=== PATIENT | female | born 1970 | race Caucasian/White ===

== ENCOUNTER 2018-08-24 09:51 | Emergency (ER) | payer OTHER, MEDICAID, SELFPAY ==
[2018-08-24 09:55] VITALS: BP 159/107; PULSE 108; RESP 30; TEMP 36.7; O2SAT 100
--- NOTE | 2018-08-24 10:11 | ED_ITS ---
HPI - Abdominal Pain General Chief Complaint: Abdominal Pain Stated Complaint: severe stomach pains x1 day Time Seen by Provider: 08/24/18 10:03 Source: patient Mode of arrival: ambulatory Limitations: no limitations History of Present Illness HPI narrative: Patient is a 48-year-old female who presents with severe a bdominal pain which started yesterday. He seems to be in severe pain pain is all over. She has had some nausea vomiting. She denies any fever. She denies chest pain. No shortness of breath she is quite anxious. Related Data Allergies Allergy/AdvReac Type Severity Reaction Status Date / Time No Known Drug Allergies Allergy Verified 08/24/18 10:04 Review of Systems Review of Systems GENERAL: Denies chills, fatigue, malaise, fever, sweats, travel HEENT: Denies sinus pain, ear pain, sore throat, difficulty swallowing, neck pain RESPIRATORY: Denies dyspnea, cough, wheezing, hemoptysis, sputum. CARDIOVASCULAR: Denies chest pain, palpitations, orthopnea, edema GASTROINTESTINAL: See HPI : Denies dysuria, frequency, incontinence, hematuria, urinary retention, flank pain. MUSCULOSKELETAL: Denies weakness, joint pain, or bony pain SKIN: No rash, no erythema, no pruritus NEUROLOGIC: Denies weakness, dizziness, headache, numbness, change in speech, confusion PSYCHIATRIC: No concerning psychosocial issues. 12 point review of systems is negative except for those stated above and HPI [facility] Medical History IV drug abuse (Acute) Methamphetamine abuse (Acute) Social History Smoking Status: Current every day smoker Social History Smoking Status: Current every day smoker Exam Initial Vital Signs Initial Vital Signs: Vital Signs Temperature 98.1 F 08/24/18 09:55 Pulse Rate 108 H 08/24/18 09:55 Respiratory Rate 30 H 08/24/18 09:55 Blood Pressure 159/107 H 08/24/18 09:55 Pulse Oximetry 100 08/24/18 09:55 GENERAL: Very anxious screaming female appears in pain HEENT: Head atraumatic,EOMI, pupils reactive, face symmetric, CARDIOVASCULAR: Regular rate and rhythm without murmurs, rubs or gallops. RESPIRATORY: Breath sounds equal bilaterally, no wheezes rales or rhonchi. ABDOMEN: Soft, diffusely tender no distension no guarding EXTREMITIES: Normal range of motion, no clubbing or edema. Neurovascularly intact NEUROLOGICAL: Alert and oriented x4.Normal gait and speech. Cranial nerves II through XII grossly intact. SKIN: Warm, dry, no laceration, no petechiae, no rashes or lesions. Course Orders Ordered: ED Orders 08/24/18 11:01 Complete Blood Count AUTO DIFF Stat Comprehensive Metabolic Panel Stat Ethanol (ETOH) Stat Lipase Stat 08/24/18 11:58 Urine Drug Screen, Rapid Stat Discontinued Medications Hydromorphone HCl (Dilaudid) 0.5 mg IV NOW ONE Stop: 08/24/18 10:22 Last Admin: 08/24/18 10:55 Dose: Not Given Hydromorphone HCl (Dilaudid) 1 mg IV NOW ONE Stop: 08/24/18 10:55 Last Admin: 08/24/18 10:40 Dose: 1 mg Sodium Chloride (Normal Saline 0.9%) 1,000 mls @ 150 mls/hr IV CONT RONNIE Last Infusion: 08/24/18 12:14 Dose: 0 mls/hr Admin: 08/24/18 10:57 Dose: 150 mls/hr Ondansetron HCl (Zofran) 4 mg IV NOW ONE Stop: 08/24/18 10:22 Last Admin: 08/24/18 10:55 Dose: 4 mg Vital Signs - 8 hr 08/24/18 09:55 08/24/18 11:02 08/24/18 12:16 Temperature 98.1 F 97.4 F L Pulse Rate 108 H 94 H 98 H Respiratory Rate 30 H 16 Blood Pressure 159/107 H 162/98 H Blood Pressure [Left Arm] 155/93 H Pulse Oximetry 100 98 18 L MDM - Abdominal Pain Lab Data Attestation: I reviewed the patient's lab results. Result diagrams: 08/24/18 11:01 08/24/18 11:01 Lab Results 08/24/18 08/24/18 08/24/18 Range/Units 11:01 11:01 11:01 WBC 11.2 H (4.5-11.0) X10^3/uL RBC 5.89 H (4.0-5.2) X10^6/uL Hgb 17.7 H (12.0-16.0) g/dL Hct 52.5 H (36-46) % MCV 89.1 (80-100) fL MCH 30.1 (26-34) PG MCHC 33.8 (30-36) % RDW 14.7 (11.6-14.8) % Plt Count 251 (150-400) X10^3/uL Neut % (Auto) 72.2 (50-75) % Lymph % (Auto) 18.5 L (25-40) % Alcorn % (Auto) 8.1 (3-14) % Eos % (Auto) 0.6 L (2-4) % Baso % (Auto) 0.6 (0-2) % Neut # (Auto) 8100 H (5941-2575) /uL Lymph # (Auto) 2100 (4021-4891) /uL Alcorn # (Auto) 900 (0-900) /uL Eos # (Auto) 100 (0-450) /uL Baso # (Auto) 100 (0-100) /uL Sodium 145 (137-145) mmol/L Potassium 3.8 (3.4-5.1) mmol/L Chloride 113 H (98-107) mmol/L Carbon Dioxide 22 (22-32) mmol/L BUN 13 (7-17) mg/dL Creatinine 0.50 L (0.52-1.04) mg/dL Estimated GFR > 60.0 (>60) mL/min BUN/Creatinine Ratio 26.0 H (6-22) Glucose 111 H (70-100) mg/dL Calcium 9.0 (8.4-10.2) mg/dL Total Bilirubin 0.9 (0.2-1.3) mg/dL AST 304 H (14-36) IU/L ALT 476 H (9-52) IU/L Alkaline Phosphatase 185 H (38-126) U/L Total Protein 8.5 H (6.3-8.2) g/dL Albumin 4.1 (3.5-5.0) g/dL Globulin 4.4 H (1.7-4.1) g/dL Albumin/Globulin Ratio 0.9 L (1.0-2.8) Lipase 111 (23-300) U/L Urine Opiates Screen (Negative) Ur Oxycodone Screen (Negative) Urine Methadone Screen (Negative) Ur Barbiturates Screen (Negative) U Tricyclic Antidepress (Negative) Ur Phencyclidine Scrn (Negative) Ur Amphetamines Screen (Negative) U Methamphetamines Scrn (Negative) Ur MDMA Scrn (Ecstasy) (Negative) U Benzodiazepines Scrn (Negative) Urine Cocaine Screen (Negative) U Marijuana (THC) Screen (Negative) Ethyl Alcohol < 10 mg/dL 08/24/18 Range/Units 11:58 WBC (4.5-11.0) X10^3/uL RBC (4.0-5.2) X10^6/uL Hgb (12.0-16.0) g/dL Hct (36-46) % MCV (80-100) fL MCH (26-34) PG MCHC (30-36) % RDW (11.6-14.8) % Plt Count (150-400) X10^3/uL Neut % (Auto) (50-75) % Lymph % (Auto) (25-40) % Alcorn % (Auto) (3-14) % Eos % (Auto) (2-4) % Baso % (Auto) (0-2) % Neut # (Auto) (2745-4407) /uL Lymph # (Auto) (3173-8179) /uL Alcorn # (Auto) (0-900) /uL Eos # (Auto) (0-450) /uL Baso # (Auto) (0-100) /uL Sodium (137-145) mmol/L Potassium (3.4-5.1) mmol/L Chloride (98-107) mmol/L Carbon Dioxide (22-32) mmol/L BUN (7-17) mg/dL Creatinine (0.52-1.04) mg/dL Estimated GFR (>60) mL/min BUN/Creatinine Ratio (6-22) Glucose (70-100) mg/dL Calcium (8.4-10.2) mg/dL Total Bilirubin (0.2-1.3) mg/dL AST (14-36) IU/L ALT (9-52) IU/L Alkaline Phosphatase (38-126) U/L Total Protein (6.3-8.2) g/dL Albumin (3.5-5.0) g/dL Globulin (1.7-4.1) g/dL Albumin/Globulin Ratio (1.0-2.8) Lipase (23-300) U/L Urine Opiates Screen Positive H (Negative) Ur Oxycodone Screen Negative (Negative) Urine Methadone Screen Negative (Negative) Ur Barbiturates Screen Negative (Negative) U Tricyclic Antidepress Negative (Negative) Ur Phencyclidine Scrn Negative (Negative) Ur Amphetamines Screen Positive H (Negative) U Methamphetamines Scrn Positive H (Negative) Ur MDMA Scrn (Ecstasy) Positive H (Negative) U Benzodiazepines Scrn Negative (Negative) Urine Cocaine Screen Negative (Negative) U Marijuana (THC) Screen Positive H (Negative) Ethyl Alcohol mg/dL Point of care testing: Point of Care Testing Test Results Negative Urine Dip Bedside Urine Glucose Negative Bedside Urine Bilirubin + 1 Bedside Urine Ketone - Negative Urine Specific Lester 1.025 Bedside Urine Occult Blood +++ Bedside Urine pH 6.0 Bedside Urine Protein + 30 Bedside Urine Urobilinogen 1+ 2mg Bedside Urine Nitrite - Negative Bedside Urine Leukocytes - Negative Esterase MDM Narrative Medical decision making narrative: Patient was extremely hard stick because she kept screaming and moving. 12:05 p.m. the patient refuses to stay any longer she says her right is leaving. She has elevated liver enzymes her abdomen is reexamined at this time she has no right upper quadrant pain. No nausea or vomiting. She has not yet had her abdominal CT are abdominal ultrasound. However she would like to leave. Urine positive for methamphetamines, amphetamines, MDMA, marijuana and opiates. The patient is clinically sober, free from distracting injury, appears to have intact insight, judgment and reason. Does not meet criteria for involuntary hospitalization. Patient has the capacity to make decisions. Discharge Plan Departure Patient Disposition: Left Against Medical Advice Clinical Impression: Elevated liver enzymes Discharge Date/Time: 08/24/18 12:17 Interventions: ED Discharge Assessment Last Done: 08/24/18 12:16 Instructions: Cirrhosis, DI for Acute Liver Failure Activity Restrictions/Additional Instructions: *You have been diagnosed with elevated liver enzymes *What to do: He refused to have abdominal CT ultrasound and further testing. Her liver enzymes are elevated is strongly recommended that you have those rechecked. *Continue to take medications as directed Do not take Tylenol *Follow up with your primary care provider in 2-3 days *Return to ER if you should have worsening or any new, worsening or concerning symptoms Stand Alone Forms: Against Medical Advice
[2018-08-24] MEDS: HYDROMORPHONE 1 MG INJ IV (10:40)
[2018-08-24] MEDS: ONDANSETRON 4 MG/2 ML INJ IV (10:55)
[2018-08-24] MEDS: SODIUM CHLORIDE 0.9% 1,000 ML 150 ML IV (10:57)
[2018-08-24 11:02] VITALS: BP 155/93; PULSE 94; RESP 16; TEMP 36.3; O2SAT 98
--- NOTE | 2018-08-24 11:03 | PC.NURSE ---
Patient in severe pain, agitated and yelling help me.
--- NOTE | 2018-08-24 11:04 | PC.NURSE ---
Patient lying in bed with eyes closed; Respirations unlabored;
[2018-08-24 11:19] LABS: Add Manual Diff / Slide Review NO; Basophils Absolute Auto 100 /uL (0-100); Basophils Percent Auto 0.6 % (0-2); Eosinophils Absolute Auto 100 /uL (0-450); Eosinophils Percent Auto 0.6 % (2-4); Hematocrit 52.5 % (36-46); Hemoglobin 17.7 g/dL (12.0-16.0); Lymphocytes Absolute Auto 2100 /uL (1100-4500); Lymphocytes Percent Auto 18.5 % (25-40); Mean Corpuscular HGB Conc 33.8 % (30-36); Mean Corpuscular Hemoglobin 30.1 PG (26-34); Mean Corpuscular Volume 89.1 fL (80-100); Monocytes Absolute Auto 900 /uL (0-900); Monocytes Percent Auto 8.1 % (3-14); Neutrophils Absolute Auto 8100 /uL (1500-7000); Neutrophils Percent Auto 72.2 % (50-75); Platelet Count 251 X10^3/uL (150-400); Red Blood Cell Count 5.89 X10^6/uL (4.0-5.2); Red Cell Distribution Width 14.7 % (11.6-14.8); White Blood Cell Count 11.2 X10^3/uL (4.5-11.0)
[2018-08-24 11:22] LABS: Alanine Aminotransferase 476 IU/L (9-52); Albumin 4.1 g/dL (3.5-5.0); Albumin Globulin Ratio 0.9 (1.0-2.8); Alkaline Phosphatase 185 U/L (38-126); Aspartate Aminotransferase 304 IU/L (14-36); Bilirubin Total 0.9 mg/dL (0.2-1.3); Blood Urea Nitrogen 13 mg/dL (7-17); Carbon Dioxide 22 mmol/L (22-32); Chloride 113 mmol/L (98-107); Estimated Glomerular Filt Rate > 60.0 mL/min (>60); Globulin 4.4 g/dL (1.7-4.1); Glucose 111 mg/dL (70-100); HEMOLYSIS < 15 (0-50); Lipase 111 U/L (23-300); Potassium 3.8 mmol/L (3.4-5.1); Sodium 145 mmol/L (137-145); Total Protein 8.5 g/dL (6.3-8.2)
[2018-08-24 11:52] LABS: Ethanol (ETOH) < 10 mg/dL
[2018-08-24 12:12] LABS: Urine Tetrahydrocannabinol Positive (Negative)
[2018-08-24 12:13] LABS: Urine Amphetamines Positive (Negative); Urine Barbiturates Negative (Negative); Urine Benzodiazepines Negative (Negative); Urine Cocaine Negative (Negative); Urine MDMA Positive (Negative); Urine Methadone Negative (Negative); Urine Methamphetamines Positive (Negative); Urine Morphine/Opi cutoff 2000 Positive (Negative); Urine Oxycodone Negative (Negative); Urine Phencyclidine Negative (Negative); Urine Tricyclic Antidepressant Negative (Negative)
[2018-08-24 12:16] VITALS: BP 162/98; PULSE 98; O2SAT 18
== END 2018-08-24 12:17 | disposition left against medical advice (07) ==
PROVIDERS: Emergency Provider Emergency Medicine
DX: R74.8 Abnormal levels of other serum enzymes (principal); Z53.20 Procedure and treatment not carried out because of patient's decision for unspecified reasons
CPT/HCPCS: 36415; 80053; 80305; 80320; 81003; 81025; 83690; 85025; 96361; 96374; 96375; 99283; 99284; J1170; J2405